=== PATIENT | female | born 1950 | race Caucasian/White ===

== ENCOUNTER 2019-05-11 13:20 | Outpatient (RCR) | payer MEDICARE, SELFPAY | END 2019-06-02 00:01 | LOC: MPT 13:20 | PROVIDERS: Family Provider Family Medicine; Visit Provider Orthopaedic Surgery | DX: Z47.1 Aftercare following joint replacement surgery (principal); Z96.642 Presence of left artificial hip joint | CPT/HCPCS: 97110 ×5; 97116; 97161 ==

== ENCOUNTER 2019-06-03 06:00 | Outpatient (RCR) | payer MEDICARE, SELFPAY | END 2019-07-03 23:59 | disposition home or self-care (01) | LOC: MPT 06:00 | PROVIDERS: Family Provider Family Medicine; PCP Family Medicine; Visit Provider Orthopaedic Surgery | DX: M25.552 Pain in left hip (principal); Z96.642 Presence of left artificial hip joint | CPT/HCPCS: 97110; 97140 ==

== ENCOUNTER → 2019-06-22 14:41 | Outpatient (BNVA) | payer MEDICARE, SELFPAY | PROVIDERS: Family Provider Family Medicine; PCP Family Medicine; Visit Provider Orthopaedic Surgery | DX: Z48.89 Encounter for other specified surgical aftercare (principal); Z96.642 Presence of left artificial hip joint | CPT/HCPCS: 73502 ==

== ENCOUNTER 2019-07-04 06:00 | Outpatient (RCR) | payer MEDICARE, SELFPAY | END 2019-08-01 23:59 | disposition home or self-care (01) | LOC: MPT 06:00 | PROVIDERS: Family Provider Family Medicine; PCP Family Medicine; Visit Provider Orthopaedic Surgery | DX: Z47.1 Aftercare following joint replacement surgery (principal); Z96.642 Presence of left artificial hip joint; M25.552 Pain in left hip | CPT/HCPCS: 97110 ==

== ENCOUNTER → 2024-09-25 14:22 | Outpatient (BNVA) | payer MEDICARE, SELFPAY | PROVIDERS: PCP Nurse Practitioner; Visit Provider Nurse Practitioner | DX: M79.672 Pain in left foot (principal); R93.6 Abnormal findings on diagnostic imaging of limbs | CPT/HCPCS: 73630 ==